=== PATIENT | male | born 1980 | race Caucasian/White ===

== ENCOUNTER 2021-05-29 13:23 | Emergency (ER) | payer OTHER ==
[2021-05-29] MEDS ORDERED: Lidocaine 1% PF 2 ML SDV INJECT ONE (14:22)
== END 2021-05-29 15:00 | disposition home or self-care (01) ==
LOC: MW.ED 13:23
DX: L02.215 Cutaneous abscess of perineum (principal); M77.9 Enthesopathy, unspecified; Z88.5 Allergy status to narcotic agent; Z88.0 Allergy status to penicillin
CPT/HCPCS: 10060; 73130-26-RT; 73130-RT; 99283-25